=== PATIENT | male | born 1965 | race African-American/Black ===

== ENCOUNTER → 2021-01-28 | Outpatient (CLI) | payer OTHER ==
--- NOTE | 2021-01-28 10:42 | RAD ---
EXAM: Pelvis and right hip, 3 views; lumbar spine, 2 views. HISTORY: Pain. COMPARISON: None. FINDINGS: Pelvis and right hip: A frontal view of the pelvis and 2 views of the right hip are obtained. There i s no acute fracture, dislocation or subluxation. There is minimal bilateral hip osteoarthritis. There is slight decreased femoral head-neck offset, a finding which can be seen with chronic hip impingeme nt. The sacroiliac joints are intact. Lumbar spine: 2 views lumbar spine are obtained. 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 There is minimal levoscoliosis centered at L4. There is degenerativ e endplate remodeling with disc space narrowing, osteophytosis and vacuum phenomenon at L5-S1, and to a lesser extent, L4-L5. There are several endplate Schmorl's nodes. There is facet arthropathy at th e lower lumbar levels. IMPRESSION: 1. Multilevel degenerative change involving the lumbar spine, primarily at L5-L1. 2. Minimal bilateral hip osteoarthritis and findings suggesting a component of chronic hip impingemen t. Electronically signed by: Daja Hardy MD (01/28/2021 10:40 AM) [id number]
== END ==
LOC: RAD 09:24
PROVIDERS: ATTEND Anesthesiology Pain Medicine
DX: Z02.71 Encounter for disability determination (principal); M16.0 Bilateral primary osteoarthritis of hip; M47.817 Spondylosis without myelopathy or radiculopathy, lumbosacral region; M51.46 Schmorl's nodes, lumbar region; M25.78 Osteophyte, vertebrae
CPT/HCPCS: 72100; 73502